=== PATIENT | female | born 1955 | race Caucasian/White ===

== ENCOUNTER 2018-05-24 23:08 | Emergency (ER) | payer SELFPAY ==
[~2018-05-24] VITALS: Ht 157.5 cm; Wt 88.7 kg
[~2018-05-24 23:08] MED LIST: ACYC-114 PO; ALPR0.25 PO; AMLO2.5T5 PO; NIAC500T10 PO; QUET300T5 PO
[2018-05-24 23:12] VITALS: BP 120/68
[2018-05-24] MEDS ORDERED: LORA-445 PO (23:17)
[2018-05-24] MEDS ORDERED: OLAN20TA3 PO (23:17)
--- NOTE | 2018-05-24 23:45 | NUR ---
FOUND PT UP AMBULATING IN ROOM, PT A&OX4, STATED " I'M READY TO GO NOW". PT DENIES PAIN OR NEEDS AT THIS TIME.
== END 2018-05-25 00:25 | disposition home or self-care (01) ==
LOC: ED 05-25 00:15
DX: F10.120 Alcohol abuse with intoxication, uncomplicated (principal); F31.9 Bipolar disorder, unspecified
CPT/HCPCS: 99283

== ENCOUNTER 2020-09-26 11:15 | Observation (INO) | payer MEDICARE ==
[~2020-09-26] VITALS: Ht 157.5 cm; Wt 73.2 kg
[2020-09-27 09:16] VITALS: BP 150/82
== END 2020-09-27 11:41 | disposition home or self-care (01) ==
LOC: ED 12:15 → EDIP 14:16 → INTOOBSV 14:16 → SUATTDRO 14:40 → 4WST 16:39
PROVIDERS: ADMIT Internal Medicine; ATTEND Internal Medicine
DX: S06.6X9A Traumatic subarachnoid hemorrhage with loss of consciousness of unspecified duration, initial encounter (principal); S00.93XA Contusion of unspecified part of head, initial encounter; S00.212A Abrasion of left eyelid and periocular area, initial encounter; G92 Toxic encephalopathy; D72.829 Elevated white blood cell count, unspecified; D75.1 Secondary polycythemia; E87.6 Hypokalemia; E83.42 Hypomagnesemia; I10 Essential (primary) hypertension; E78.5 Hyperlipidemia, unspecified; F31.9 Bipolar disorder, unspecified; F10.229 Alcohol dependence with intoxication, unspecified; F41.9 Anxiety disorder, unspecified; Z86.718 Personal history of other venous thrombosis and embolism; Z88.0 Allergy status to penicillin; Z79.899 Other long term (current) drug therapy; W18.39XA Other fall on same level, initial encounter; Y93.E1 Activity, personal bathing and showering; Y92.89 Other specified places as the place of occurrence of the external cause
CPT/HCPCS: 36415; 70450; 70486; 71045; 80053; 80061; 80307; 80320; 81001; 83735; 84100; 84443; 84484; 85025; 85610; 85730; 87086; 93005; 93306; 93356; 93880; 96365; 96366; 96367; 97162; 97165; 99285; G0378; J3411; J3475; J7030; J7042